=== PATIENT | female | born 1955 | race Caucasian/White ===

== ENCOUNTER → 2024-08-23 09:44 | Outpatient (REF) | payer MEDICARE, SELFPAY | LOC: RAD 09:44 | PROVIDERS: ATTENDING PHYSICIAN Internal Medicine Gastroenterology; FAMILY PHYSICIAN Nurse Practitioner Adult Health | DX: R10.9 Unspecified abdominal pain (principal) | CPT/HCPCS: 74176 ==

== ENCOUNTER → 2025-04-13 11:39 | Outpatient (REF) | payer MEDICARE, BC, SELFPAY | LOC: RAD 11:39 | PROVIDERS: ATTENDING PHYSICIAN Family Medicine | DX: R91.1 Solitary pulmonary nodule (principal) | CPT/HCPCS: 71250 ==

== ENCOUNTER → 2025-04-23 10:09 | Outpatient (REF) | payer MEDICARE, BC, SELFPAY | LOC: WDC 10:09 | PROVIDERS: ATTENDING PHYSICIAN Family Medicine | DX: N63.21 Unspecified lump in the left breast, upper outer quadrant (principal) | CPT/HCPCS: 76642; 77062; 77066 ==

== ENCOUNTER → 2025-04-24 13:52 | Outpatient (REF) | payer MEDICARE, BC, SELFPAY | LOC: RAD 13:52 | PROVIDERS: ATTENDING PHYSICIAN Urology; FAMILY PHYSICIAN Family Medicine | DX: N39.41 Urge incontinence (principal) | CPT/HCPCS: 76770; 76856 ==

== ENCOUNTER → 2025-06-12 13:35 | Outpatient (REF) | payer MEDICARE, BC, SELFPAY | LOC: RAD 13:35 | PROVIDERS: ATTENDING PHYSICIAN Family Medicine | DX: M25.571 Pain in right ankle and joints of right foot (principal); M25.572 Pain in left ankle and joints of left foot; M25.561 Pain in right knee; M25.562 Pain in left knee; M25.551 Pain in right hip; M25.552 Pain in left hip; M25.531 Pain in right wrist; M25.532 Pain in left wrist | CPT/HCPCS: 73110; 73502; 73564; 73610 ==

== ENCOUNTER → 2025-09-04 14:39 | Outpatient (REF) | payer MEDICARE, BC, SELFPAY ==
[2025-09-04 15:44] LABS: Urine Character Clear (Clear)
[2025-09-04 15:47] LABS: Hematocrit 48.4 % (37.0-47.0); Hemoglobin 15.8 g/dL (12.0-16.0); Mean Corp Hgb Conc. 32.6 g/dL (33.0-37.0); Mean Corpuscular Volume 95.8 fL (81.0-99.0); Nucleated Red Blood Cells % 0 %; Platelet Count 252 10^3/uL (130-400); Red Cell Dist. Width 12.4 % (11.5-14.5)
[2025-09-04 16:17] LABS: ALT (SGPT) 30 U/L (0-35); AST (SGOT) 26 U/L (14-36); Albumin 4.5 g/dl (3.5-5.0); Alkaline Phosphatase 93 U/L (38-126); Blood Urea Nitrogen 24 mg/dl (7-17); Calcium 9.8 mg/dl (8.4-10.2); Carbon Dioxide 32 mmol/L (22-30); Chloride 97 mmol/L (98-107); Glucose 99 mg/dl (70-99); Potassium 3.7 mmol/L (3.5-5.1); Sodium 134 mmol/L (135-145); Total Protein 7.4 g/dl (6.3-8.2); eGFR > 60.00
== END ==
LOC: REG 14:39
PROVIDERS: ATTENDING PHYSICIAN Nurse Practitioner
DX: R19.7 Diarrhea, unspecified (principal); R35.0 Frequency of micturition; R15.9 Full incontinence of feces
CPT/HCPCS: 36415; 80053; 81003; 85025; 87086; 93005

== ENCOUNTER 2025-09-10 06:14 | Day surgery (SDC) | payer MEDICARE, BC, SELFPAY ==
[2025-09-10] VITALS (7 sets, daily range): BP systolic 74–125; BP diastolic 54–65; BMI 25.0
[2025-09-10] MEDS: NORMOSOL-R/PLASMALYTE-A 1000 IV (08:04)
[2025-09-10 08:12] LABS: Glucose - Point of Care 100 mg/dl (70-99)
[2025-09-10] MEDS: TORADOL 15 MG IV (09:45)
[2025-09-10] MEDS: LIDOCAINE 4% PATCH 1 PATCH TOPICAL (09:55)
== END 2025-09-10 10:45 | disposition home or self-care (01) ==
LOC: SDS 06:14
PROVIDERS: ATTENDING PHYSICIAN Urology
DX: T83.190A Other mechanical complication of urinary electronic stimulator device, initial encounter (principal); R15.9 Full incontinence of feces; R35.0 Frequency of micturition; Y73.2 Prosthetic and other implants, materials and accessory gastroenterology and urology devices associated with adverse incidents; N95.2 Postmenopausal atrophic vaginitis
CPT/HCPCS: 64590; 64561; 72170; 76000; 82962; C1767; C1778; C1787; L8681